=== PATIENT | female | born 1965 ===

== ENCOUNTER 2025-09-10 03:11 | Inpatient (IN) | payer OTHER ==
[~2025-09-10] VITALS: Ht 162.6 cm; Wt 104.1 kg
[2025-09-10 09:16] VITALS: BP 136/118
[2025-09-10] MEDS ORDERED: Dose Adjust by Pharmacy XX STA ×2 (09:22→16:16)
[2025-09-10] MEDS ORDERED: Heparin Sodium,Porcine/0.5 NS 500 ML IV SCH (09:25)
[2025-09-10] MEDS ORDERED: AMLO10 PO (09:33)
[2025-09-10] MEDS ORDERED: OXYC30 PO (09:33)
[2025-09-10] MEDS ORDERED: LOSA50 PO (09:34)
[2025-09-10] MEDS ORDERED: CLOP75 PO (09:35)
[2025-09-10] MEDS ORDERED: CARV3.125 PO (09:35)
[2025-09-10] MEDS ORDERED: CHLO25B PO (09:35)
[2025-09-10] MEDS ORDERED: SYNTHROID175 MC1 PO (09:37)
[2025-09-10] MEDS ORDERED: Synthroid300 MCG PO (09:38)
[2025-09-10] MEDS ORDERED: NITR.4SL SL (09:43)
[2025-09-10] MEDS ORDERED: Robaxin750 MG (09:45)
[2025-09-10 09:58] LABS: BASOPHILS ABSOLUTE AUTO 0.06 K/mm3 (0.00-0.23); BASOPHILS PERCENT AUTO 1 % (0-2); EOSINOPHILS ABSOLUTE AUTO 0.05 K/mm3 (0.00-0.68); EOSINOPHILS PERCENT AUTO 0 % (0-6); Hematocrit 38.9 % (33.0-51.0); Hemoglobin 13.3 g/dL (11.5-16.0); IMMATURE GRAN ABSOLUTE AUTO 0.05 K/mm3 (0.00-0.10); IMMATURE GRAN PERCENT AUTO 0 % (0-1); LYMPHOCYTES ABSOLUTE AUTO 2.31 K/mm3 (0.84-5.20); LYMPHOCYTES PERCENT AUTO 20 % (21-46); MONOCYTES ABSOLUTE AUTO 0.60 K/mm3 (0.16-1.47); MONOCYTES PERCENT AUTO 5 % (4-13); Mean Corpuscular HGB Conc 34.2 g/dL (31.5-36.5); Mean Corpuscular Volume 85 fL (80-100); NEUTROPHILS ABSOLUTE AUTO 8.45 K/mm3 (1.96-9.15); NEUTROPHILS PERCENT AUTO 73 % (41-73); NRBC ABSOLUTE 0.00 K/mm3 (0.00-0.02); NRBC Auto 0.0 /100 WBC (0.0-0.2); Platelet Count 275 K/mm3 (150-400); RDW Coefficient Variation 13.7 % (11.7-14.2); RDW Standard Deviation 42.8 fL (35.1-46.3)
--- NOTE | 2025-09-10 10:23 | NUR ---
arrival to pcu patient arrived to pcu at 0904. vital signs stable. tele sinusbrady 45-50s. spo2 >90% on room air. patient [facility] into [facility] bed with a front wheel walker and standby assist. after walking to pcu bed patient reports chest pain rated at 2 on scale and described it as burning. md smith at bedside for this. patient is alert and oriented x4. neuro is intact. perrla. patient is able to make needs known and uses call light. lung sounds clear throughout. skin is clean dry and intact. patient abd sounds active and soft nontender. patient is continent of bowl and bladder, but reports occasional incontinence with coughing. see admit shift assessment for further detials. md smith ordered labs and pending labs will determine our next steps and informed patient of this. home med rec done. patient could not remember the dose of her muscle relaxer she uses on occasiona. admit complete. this rn reassessed patient chest pain and patient no longer experiencing chest pain. heparin drip started at 75kg/hr 20u/kg/hr or 30ml/hr. see emar.
[2025-09-10 10:25] LABS: Alanine Aminotransfer (ALT/SGP 14.0 U/L (12-78); Albumin, Blood 3.6 g/dL (3.4-5.0); Albumin/Globulin Ratio 1.0 (0.8-1.8); Anion Gap 9.0 mmol/L (3-11); Aspartate Aminotrans (AST/SGOT 14.0 U/L (12-37); Bilirubin, Total 0.4 mg/dL (0.1-1.0); Blood Urea Nitrogen 25.0 mg/dL (8-24); CO2, Blood 28.0 mmol/L (21-32); Calcium, Blood 9.5 mg/dL (8.5-10.1); Chloride, Blood 101.0 mmol/L (98-108); Creatinine, Blood 1.2 mg/dL (0.40-1.00); Globulin, Blood 3.5 g/dL (2.2-4.0); Glucose, Blood 112.0 mg/dL (70-99); Magnesium, Blood 1.9 mg/dL (1.6-2.4); Potassium, Blood 2.9 mmol/L (3.5-5.5); Sodium, Blood 135.0 mmol/L (136-145); Thyroid Stimulating Hormone 3.49 uIU/mL (0.360-4.800); Total Protein, Blood 7.1 g/dL (6.4-8.2)
[2025-09-10] MEDS ORDERED: Potassium Chloride 10 Meq Tablet SA PO ONE (10:40)
[2025-09-10] MEDS ORDERED: Mag Sulfate 1 GM/D5% 100ML 100 ML IV STA (10:46)
[2025-09-10] MEDS ORDERED: Ondansetron HCl 2 MG / ML 2ML Vial IV PRN (11:05)
[2025-09-10 11:07] VITALS: BP 141/130
--- NOTE | 2025-09-10 12:16 | NUR ---
"Spiritual Care | Pt. request Pt. is resting in bed, but responds when I come into the room. Pt. displays evidence of discomfort but is pleasant and welcomes my visit. Facilitated alife review and quickly considered matters of keanu and belief. Established a measure of rapport as the visit developed. Pt. displayed evidence of confidence and trust. Prayed with the Pt. Pt. verbalized gratitude for the spiritual care visit."
[2025-09-10] MEDS ORDERED: Mag Hydrox/Al Hydrox/Simeth 18 ML,Lidocaine 2% Viscous Soln 9 ML,Atropine/Scopalam/Hyos... PO ONE ×2 (12:45→16:15)
[2025-09-10] MEDS ORDERED: FLU VACC TS2025-26(6MOS UP)/PF 45 MCG/0.5 ML SYRINGE IM SCH (13:45)
[2025-09-10] MEDS ORDERED: Pantoprazole Sodium 40 MG Injection IV SCH (14:00)
[2025-09-10 15:02] VITALS: BP 150/90
[2025-09-10 15:56] LABS: Anti-Xa UFH, PHA Monitoring 0.17 IU/mL; Prothrombin Time Results 12.3 Sec (9.7-11.5)
[2025-09-10] MEDS ORDERED: Heparin Sodium 5000 Units/ML 1ML MDV IV ONE (16:20)
--- NOTE | 2025-09-10 17:01 | NUR ---
shift summary vital signs remain stable. tele sinusbrady 40s. no acute changes.
[2025-09-10 19:45] VITALS: BP 172/76
--- NOTE | 2025-09-10 21:54 | NUR ---
ASSUMPTION OF CARE ASSUMED CARE OF PT AT APPROXIMATELY 1900. PT RESTING COMFORTABLY IN BED. HEPARIN GTT RUNNING AT 22UNITS/KG/HR. INFUSION SITE WNL. NO C/O PAIN/IRRITATION AT SITE. PT C/O SOME STOMACH DISCOMFORT AND LOSS OF APPETITE AFTER HAVING IV POTASSIUM TODAY. MEDICATIONS GIVEN PER EMAR. PT AOX4. ABLE TO MAKE ALL NEEDS KNOWN. CALL LIGHT WITHIN REACH AND PT CALLS APPROPRIATELY FOR ASSISTANCE.
[2025-09-10] MEDS ORDERED: Clarify Drug Order XX ONE (23:35)
[2025-09-10 23:43] VITALS: BP 154/72
[2025-09-11 03:09] VITALS: BP 152/64
[2025-09-11 05:28] LABS: BASOPHILS ABSOLUTE AUTO 0.05 K/mm3 (0.00-0.23); BASOPHILS PERCENT AUTO 1 % (0-2); EOSINOPHILS ABSOLUTE AUTO 0.09 K/mm3 (0.00-0.68); EOSINOPHILS PERCENT AUTO 1 % (0-6); Hematocrit 35.2 % (33.0-51.0); Hemoglobin 12.2 g/dL (11.5-16.0); IMMATURE GRAN ABSOLUTE AUTO 0.02 K/mm3 (0.00-0.10); IMMATURE GRAN PERCENT AUTO 0 % (0-1); LYMPHOCYTES ABSOLUTE AUTO 2.36 K/mm3 (0.84-5.20); LYMPHOCYTES PERCENT AUTO 26 % (21-46); MONOCYTES ABSOLUTE AUTO 0.49 K/mm3 (0.16-1.47); MONOCYTES PERCENT AUTO 6 % (4-13); Mean Corpuscular HGB Conc 34.7 g/dL (31.5-36.5); Mean Corpuscular Volume 85 fL (80-100); NEUTROPHILS ABSOLUTE AUTO 5.97 K/mm3 (1.96-9.15); NEUTROPHILS PERCENT AUTO 66 % (41-73); NRBC ABSOLUTE 0.00 K/mm3 (0.00-0.02); NRBC Auto 0.0 /100 WBC (0.0-0.2); Platelet Count 208 K/mm3 (150-400); RDW Coefficient Variation 13.4 % (11.7-14.2); RDW Standard Deviation 42.1 fL (35.1-46.3)
[2025-09-11] MEDS ORDERED: Clarify Drug Order XX ONE (05:50)
[2025-09-11 05:56] LABS: Alanine Aminotransfer (ALT/SGP 12.0 U/L (12-78); Albumin, Blood 3.2 g/dL (3.4-5.0); Albumin/Globulin Ratio 1.2 (0.8-1.8); Anion Gap 9.0 mmol/L (3-11); Aspartate Aminotrans (AST/SGOT 15.0 U/L (12-37); Bilirubin, Total 0.4 mg/dL (0.1-1.0); Blood Urea Nitrogen 22.0 mg/dL (8-24); CO2, Blood 24.0 mmol/L (21-32); Calcium, Blood 9.1 mg/dL (8.5-10.1); Chloride, Blood 102.0 mmol/L (98-108); Creatinine, Blood 1.13 mg/dL (0.40-1.00); Globulin, Blood 2.6 g/dL (2.2-4.0); Glucose, Blood 106.0 mg/dL (70-99); Potassium, Blood 3.4 mmol/L (3.5-5.5); Sodium, Blood 132.0 mmol/L (136-145); Total Protein, Blood 5.8 g/dL (6.4-8.2)
[2025-09-11] MEDS ORDERED: Levothyroxine Sodium 0.15 MG Tab PO SCH (06:00)
--- NOTE | 2025-09-11 06:05 | NUR ---
SHIFT SUMMARY PT C/O ABDOMINAL BURNING SENSATION. MD RAGSDALE NOTIFIED. ORDERS PLACED AND PT GIVEN MEDICATION PER EMAR. PT HAS BEEN SB 40S-50S ON TELE. HEPARIN GTT RUNNING AT 22 UNITS/KG/HR. NO RATE CHANGE THIS SHIFT. PT RESTING COMFORTABLY IN BED. CALL LIGHT WITHIN REACH. PT ABLE TO MAKE ALL NEEDS KNOWN AND CALLS APPROPRIATELY FOR ASSISTANCE WHEN NEEDED. NO C/O CP/PRESSURE. NO C/O SOB.
[2025-09-11 07:35] VITALS: BP 166/98
[2025-09-11] MEDS ORDERED: Mag Hydrox/Al Hydrox/Simeth 18 ML,Lidocaine 2% Viscous Soln 9 ML,Atropine/Scopalam/Hyos... PO PRN (09:25)
[2025-09-11] MEDS ORDERED: Sucralfate 1000MG / 10ML UD BTL PO SCH (09:30)
[2025-09-11 12:45] VITALS: BP 153/82
[2025-09-11 14:00] LABS: CHOL/HDL RATIO 5.8; Cholesterol 196 mg/dL (50-200); HDL Cholesterol 34 mg/dL (>39); LDL/HDL RATIO 3.5; Low Density Lipoprotein Chol 120 mg/dL (0-110); Triglycerides 212 mg/dL (30-160); Very Low Density Lipoprot Chol 42 mg/dL (6-32)
--- NOTE | 2025-09-11 14:17 | NUR ---
SHIFT SUMMARY/ ASSUMPTION OF CARE: PT A&OX4. FOLLOW COMMANDS AND MAKES NEEDS KNOWN TO STAFF. PT HAS ABLE TO WALK AROUND UNIT WITH FWW. HAS BEEN SITTING UP IN CHAIR MOST OF THE DAY. USING BATHROOM. FLUIDS STOPPED. DENIES ANY COMPLAINTS OF CP, PRESSURE, TIGHTNESS OR SOB. VSS. NO SIGNIFICANT EVENTS HAPPENED DURING THIS SHIFT. REPORT TO XIMENA B TO ASSUME CARE OF PT.
--- NOTE | 2025-09-11 14:25 | NUR ---
SHIFT SUMMARY: PT A&OX4. FOLLOWS COMMANDS AND MAKES NEEDS KNOWN TO STAFF. PT HAS BEEN USING THE BSC WITH SBA. DENIES ANY COMPLAINTS OF CP, PRESSURE, TIGHTNESS OR SOB. PT HAS BEEN REPORTING ABD PAIN THAT IS RELIEVED WITH MAYLOX OR GI COCKTAIL. REMAINS ON HEPARIN GTT. WAS SEEN BY GI AND CARDIOLOGY TODAY. PLAN FOR ENDOSCOPY TOMORROW AND TO DC HEPARIN GTT IF TROPONIN IS NEGATIVE. PT HAS BEEN ABLE TO TOLERATE LITTLE PO INTAKE BUT ALSO HAS NOT HAD MUCH OF AN APPETITE. NO SIGNIFICANT EVENTS HAPPENED DURING THIS SHIFT. REPORT TO XIMENA B TO ASSUME CARE OF PT.
[2025-09-11] MEDS ORDERED: Potassium Chloride 10 Meq Tablet SA PO ONE (14:50)
[2025-09-11 15:04] VITALS: BP 167/69
--- NOTE | 2025-09-11 18:16 | NUR ---
TRASNFER OF CARE NOTE; NO ACUTE CHANGE FOR THE SHIFT. HEP GTT WAS DC'D. FOR ENDOSCOPY IN AM OPN CLEAR LIQUID DIET. NPO AFTER MIDNIGHT. PT HASNT BEEN GETTING COREG DOSE DUE TO BRADYCARDIA, ORDER RECEIVED FOR PARAMETERS. ALSO PT ASKED FOR SLEEP MEDS ORDER IN PLACE. POTASSIUM REPLACED VIA PO. NO OTHER ISSUES REPORTED FOR THE SHIFT. PT HAS CALLING APPROPRIATELY. WILL REPORT TO ONCOMING SHIFT
[2025-09-11 21:00] VITALS: BP 141/80
[2025-09-12] MEDS ORDERED: FentaNYL Citrate 50 MCG/ML 2 ML Injection IV ONE (00:40)
[2025-09-12 03:12] VITALS: BP 138/76
[2025-09-12 04:09] LABS: BASOPHILS ABSOLUTE AUTO 0.06 K/mm3 (0.00-0.23); BASOPHILS PERCENT AUTO 1 % (0-2); EOSINOPHILS ABSOLUTE AUTO 0.12 K/mm3 (0.00-0.68); EOSINOPHILS PERCENT AUTO 1 % (0-6); Hematocrit 36.5 % (33.0-51.0); Hemoglobin 12.7 g/dL (11.5-16.0); IMMATURE GRAN ABSOLUTE AUTO 0.04 K/mm3 (0.00-0.10); IMMATURE GRAN PERCENT AUTO 0 % (0-1); LYMPHOCYTES ABSOLUTE AUTO 2.71 K/mm3 (0.84-5.20); LYMPHOCYTES PERCENT AUTO 26 % (21-46); MONOCYTES ABSOLUTE AUTO 0.60 K/mm3 (0.16-1.47); MONOCYTES PERCENT AUTO 6 % (4-13); Mean Corpuscular HGB Conc 34.8 g/dL (31.5-36.5); Mean Corpuscular Volume 84 fL (80-100); NEUTROPHILS ABSOLUTE AUTO 6.85 K/mm3 (1.96-9.15); NEUTROPHILS PERCENT AUTO 66 % (41-73); NRBC ABSOLUTE 0.00 K/mm3 (0.00-0.02); NRBC Auto 0.0 /100 WBC (0.0-0.2); Platelet Count 239 K/mm3 (150-400); RDW Coefficient Variation 13.2 % (11.7-14.2); RDW Standard Deviation 41.0 fL (35.1-46.3)
[2025-09-12 04:34] LABS: Anion Gap 10.0 mmol/L (3-11); Blood Urea Nitrogen 23.0 mg/dL (8-24); CO2, Blood 24.0 mmol/L (21-32); Calcium, Blood 9.3 mg/dL (8.5-10.1); Chloride, Blood 100.0 mmol/L (98-108); Creatinine, Blood 1.19 mg/dL (0.40-1.00); Glucose, Blood 102.0 mg/dL (70-99); Potassium, Blood 3.3 mmol/L (3.5-5.5); Sodium, Blood 131.0 mmol/L (136-145)
--- NOTE | 2025-09-12 05:08 | NUR ---
SHIFT SUMMARY PT A7OX4, NO ACUTE CHANGES OVERNIGHT. PATIENT HAD A SHOWER ON SHOWER CHAIR AND WIH HELP OF SISTER. NPO AT MIDNIGHT. PT EXPERIENCED ONE EP OF EMESIS WHEN TAKING MAALOX FOR GI BURN. STATED THE MED HADN'T BEEN QUITE MIXED ALL THE WAY AND WHEN THE THICK UNMIXED PORTION HIT THE BACK OF HER THROAT IT CAUSED HER TO VOMIT. GIVEN A DOSE OF ZOFRAN FOR THE NV AND 1X DOSE OF FENANYL FOR PAIN. PATIENT WAS ABLE TO RELAX AND SLEEP AFTER. NO FURTHER INCIDENTS OF NV.
--- NOTE | 2025-09-12 07:09 | NUR ---
medicated for nausea at this time.
[2025-09-12 07:28] VITALS: BP 166/72
[2025-09-12] MEDS ORDERED: Lidocaine 2% Viscous Soln 15 ML UDC PO ONE (09:05)
[2025-09-12] MEDS ORDERED: HYDROmorphone HCl/Pf 1MG SYR IV PRN (09:55)
[2025-09-12 13:25] VITALS: BP 124/75
--- NOTE | 2025-09-12 14:07 | NUR ---
09/12/25 1407 Swapna Jimenez; SEE ANESTHESIA RECORDS.
[2025-09-12] MEDS ORDERED: Mag Hydrox/Al Hydrox/Simeth 72 ML,Lidocaine 2% Viscous Soln 36 ML,Atropine/Scopalam/Hyo... PO PRN (14:15)
[2025-09-12 16:21] VITALS: BP 117/71
--- NOTE | 2025-09-12 18:00 | NUR ---
PT SUMMARY; PT HAD ENDOSCOPY DONE AFTER LUNCH, BIOPSY DONE NO ACUTE ULCERS FOUND, MILD GASTRITIS PER REPORT. PT CONTINUES TO C/O BURNING TOMACH PAIN. ABEBE SINGH SPENCER ORDER PLACED FOR GI COCKTAIL. PT REPORTED EFFECTIVENESS. PT RESTARTED ON REGULAR DIET PT ABLE TO TOLERATE. PT ALSO PAIN MEDS FOR BACK PAIN RESTARTED. VITALS HRR SR 70-80'S, SBP 120-170 SBP INCREASES WHEN IN PAIN. SATS ABOVE 95% ON RA, AFEBRILE. SISTER CHRISTINA HAS BEEN AT THE BEDSIDE ALL SHIFT. PT TO DISCHARGE IN AM IF STABLE. NO OTHER ISSUES ENCOUNTERED WILL REPORT TO ONCOMING SHIFT
[2025-09-12] MEDS ORDERED: OxyCODONE HCL 15 MG TAB.SR.12H PO SCH (21:00)
[2025-09-12 22:12] VITALS: BP 121/67
[2025-09-13] VITALS: BP 120/69
[2025-09-13 05:07] LABS: BASOPHILS ABSOLUTE AUTO 0.08 K/mm3 (0.00-0.23); BASOPHILS PERCENT AUTO 1 % (0-2); EOSINOPHILS ABSOLUTE AUTO 0.33 K/mm3 (0.00-0.68); EOSINOPHILS PERCENT AUTO 3 % (0-6); Hematocrit 37.8 % (33.0-51.0); Hemoglobin 13.1 g/dL (11.5-16.0); IMMATURE GRAN ABSOLUTE AUTO 0.05 K/mm3 (0.00-0.10); IMMATURE GRAN PERCENT AUTO 0 % (0-1); LYMPHOCYTES ABSOLUTE AUTO 3.69 K/mm3 (0.84-5.20); LYMPHOCYTES PERCENT AUTO 33 % (21-46); MONOCYTES ABSOLUTE AUTO 0.69 K/mm3 (0.16-1.47); MONOCYTES PERCENT AUTO 6 % (4-13); Mean Corpuscular HGB Conc 34.7 g/dL (31.5-36.5); Mean Corpuscular Volume 84 fL (80-100); NEUTROPHILS ABSOLUTE AUTO 6.42 K/mm3 (1.96-9.15); NEUTROPHILS PERCENT AUTO 57 % (41-73); NRBC ABSOLUTE 0.00 K/mm3 (0.00-0.02); NRBC Auto 0.0 /100 WBC (0.0-0.2); Platelet Count 243 K/mm3 (150-400); RDW Coefficient Variation 13.3 % (11.7-14.2); RDW Standard Deviation 41.7 fL (35.1-46.3)
[2025-09-13 05:36] LABS: Anion Gap 9.0 mmol/L (3-11); Blood Urea Nitrogen 26.0 mg/dL (8-24); CO2, Blood 23.0 mmol/L (21-32); Calcium, Blood 9.5 mg/dL (8.5-10.1); Chloride, Blood 101.0 mmol/L (98-108); Creatinine, Blood 1.36 mg/dL (0.40-1.00); Glucose, Blood 95.0 mg/dL (70-99); Potassium, Blood 3.2 mmol/L (3.5-5.5); Sodium, Blood 130.0 mmol/L (136-145)
[2025-09-13 05:54] VITALS: BP 115/67
[2025-09-13 08:00] VITALS: BP 149/82
[2025-09-13] MEDS ORDERED: Potassium Chloride 10 Meq Tablet SA PO ONE (08:25)
[2025-09-13] MEDS ORDERED: ATOR80 PO (12:03)
[2025-09-13] MEDS ORDERED: Xylocaine5 M1 PO (12:10)
[2025-09-13] MEDS ORDERED: PANT40 PO (12:10)
[2025-09-13] MEDS ORDERED: METO5A PO (12:12)
--- NOTE | 2025-09-13 14:13 | NUR ---
SHIFT SUMMARY/DISCHARGE PATIENT PROVIDED DISCHARGE EDUCATION, ALL QUESTIONS ANSWERED. DISCHARGE EDUCATION INFORMATION WITH PATIENT. PATIENT DISPLAYING NO SIGNS OF DISTRESS. PATIENT LEFT UNIT VIA WHEELCHAIR. ALL PERSONAL BELONGINGS WITH PATIENT.
== END 2025-09-13 16:23 | disposition home or self-care (01) | DRG 303 ==
LOC: PCU 03:11
PROVIDERS: Internal Medicine; Surgery; ADMIT Family Medicine
PROC: 3E02340 Introduction of Influenza Vaccine into Muscle, Percutaneous Approach (ICD-10-PCS; 2025-09-10)
PROC: 0DB78ZX Excision of Stomach, Pylorus, Via Natural or Artificial Opening Endoscopic, Diagnostic (ICD-10-PCS; principal; 2025-09-12 12:00)
DX: I25.110 Atherosclerotic heart disease of native coronary artery with unstable angina pectoris (principal); E87.20 Acidosis, unspecified; I16.9 Hypertensive crisis, unspecified; E03.9 Hypothyroidism, unspecified; I10 Essential (primary) hypertension; K21.9 Gastro-esophageal reflux disease without esophagitis; I77.819 Aortic ectasia, unspecified site; M54.9 Dorsalgia, unspecified; G89.29 Other chronic pain; R10.13 Epigastric pain; K44.9 Diaphragmatic hernia without obstruction or gangrene; F17.210 Nicotine dependence, cigarettes, uncomplicated; K29.70 Gastritis, unspecified, without bleeding; K58.9 Irritable bowel syndrome, unspecified; Z79.82 Long term (current) use of aspirin; Z79.02 Long term (current) use of antithrombotics/antiplatelets; Z88.5 Allergy status to narcotic agent; Z88.1 Allergy status to other antibiotic agents; Z79.890 Hormone replacement therapy; Z79.891 Long term (current) use of opiate analgesic; Z79.899 Other long term (current) drug therapy; Z71.6 Tobacco abuse counseling
CPT/HCPCS: 36415; 80048; 80053; 80061; 82947; 83605; 83735; 83880; 84443; 84484; 85025; 85520; 85610; 85730; 88305; 88342; 93005; 93010; 93306; A9270; J1171; J1644; J2405; J2470; J2704; J3010; J3475; J3480; J7050; J7120